=== PATIENT | male | born 2000 | race Caucasian/White ===

== ENCOUNTER 2019-08-13 17:13 | Emergency (ER) | payer OTHER ==
--- NOTE | 2019-08-13 17:32 | ED ---
Complex/Multi-Sys Presentation - HPI Summary HPI Summary: 18 year old M arriving via private car from [facility] complains of purple discoloration up his knees and toes and light headedness after inhaling poppers yesterday evening. Went to technical illustrator today who was concerned with discoloration and referred patient to ED to check hemoglobin. Symptoms rated 2/ 10 in severity. Symptoms improved since onest. No PMHx. No surgical hx. FHx diabetes, cardiac disease, depression, anxiety. - History Of Current Complaint Chief Complaint: EDGeneral Time Seen by Provider: 08/13/19 17:25 Hx Obtained From: Patient Onset/Duration: Lasting Hours, Still Present Timing: Constant Severity Currently: Mild Aggravating Factor(s): Nothing Alleviating Factor(s): Nothing - Allergies/Home Medications Allergies/Adverse Reactions: Allergies Allergy/AdvReac Type Severity Reaction Status Date / Time No Known Allergies Allergy Verified 08/13/19 17:21 Home Medications: Home Medications NK [No Home Medications Reported] 08/13/19 [History Confirmed 08/13/19] PMH/Surg Hx/FS Hx/Imm Hx Endocrine/Hematology History: Denies: Hx Diabetes Cardiovascular History: Denies: Hx Hypertension - Surgical History Surgical History: None Infectious Disease History: No Infectious Disease History: Denies: Traveled Outside the [place] in Last 30 Days - Family History Known Family History: Positive: Cardiac Disease, Diabetes, Other - depression, anxiety Review of Systems Positive: Other - purple discoloration up his knees and toes Neurological: Other - light headedness All Other Systems Reviewed And Are Negative: Yes Physical Exam - Summary Physical Exam Summary: Constitutional: Well-developed, Well-nourished, Alert. (-) Distressed Skin: Warm, Dry. Cyanosis of the nail beds HENT: Normocephalic; Atraumatic Eyes: Conjunctiva normal Neck: Musculoskeletal ROM normal neck. (-) JVD, (-) Stridor, (-) Nuchal rigidity Cardio: Rhythm regular, rate normal, Heart sounds normal; Intact distal pulses; Radial pulses are 2+ and symmetric. (-) Murmur Pulmonary/Chest wall: Effort normal. (-) Respiratory distress, (-) Wheezes, (-) Rales Abd: Soft, (-) tenderness, (-) Distension, (-) Guarding, (-) Rebound Musculoskeletal: (-) Edema Lymph: (-) Cervical adenopathy Neuro: Alert, Oriented x3 Psych: Mood and affect Normal Triage Information Reviewed: Yes Vital Signs On Initial Exam: Initial Vitals Temp Pulse Resp BP Pulse Ox 97.5 F 96 14 146/101 100 08/13/19 17:15 08/13/19 17:15 08/13/19 17:15 08/13/19 17:15 08/13/19 17:15 Vital Signs Reviewed: Yes Procedures - Sedation Patient Received Moderate/Deep Sedation with Procedure: No Diagnostics - Vital Signs Vital Signs Temp Pulse Resp BP Pulse Ox 08/13/19 17:15 97.5 F 96 14 146/101 100 - Laboratory Result Diagrams: 08/13/19 18:24 08/13/19 18:24 Lab Statement: Any lab studies that have been ordered have been reviewed, and results considered in the medical decision making process. - EKG No standard instances Cardiac Rate: Tachycardia EKG Rhythm: Sinus Tachycardia ST Segment: Normal - benign early repol Ectopy: None Complex Multi-Symp Course/Dx Course Of Treatment: 18 y/o now presents with peripheral cyanosis in the setting of drug use. Physical exam a well-appearing male, no acute distress. Mild peripheral cyanosis (nailbeds). Oxygen saturation 100%. Patient admits to inhaling poppers which often consist of nitrates, initial concern for methemoglobinemia. ABG with PaO2 104. Unable to send met hemoglobin level here however lower suspicion clinically significant hemoglobinemia given normal O2 sat and PO2. - Diagnoses Provider Diagnoses: Peripheral cyanosis Discharge ED - Sign-Out/Discharge Documenting (check all that apply): Patient Departure - Discharge Plan Condition: Stable Disposition: HOME Referrals: Laura Smith MD [Primary Care Provider] - Additional Instructions: You were seen in the ER for concern for low oxygen levels. Your hemoglobin and oxygen levels were stable. Please return for any worsening or concerning symptoms. It was a pleasure taking care of you today. - Billing Disposition and Condition Condition: STABLE Disposition: Home - Attestation Statements Document Initiated by Scribe: Yes Documenting Scribe: Bhavna Ceballos Provider For Whom Scribe is Documenting (Include Credential): Luis Alfredo Murillo MD Scribe Attestation: Bhavna Fonseca, scribed for Luis Alfredo Murillo MD on 08/14/19 at 0746. Scribe Documentation Reviewed: Yes Provider Attestation: The documentation as recorded by the scribe, Bhavna Ceballos accurately reflects the service I personally performed and the decisions made by me, Luis Alfredo Murillo MD Status of Scribe Document: Viewed
[2019-08-13 18:30] LABS: ABS Lymphocytes 1.9 10^3/ul (1.0-4.8); ABS Monocytes 0.8 10^3/ul (0-0.8); ABS Neutrophils 6.6 10^3/ul (1.5-7.7); Eosinophil % 0.1 %; Hematocrit 49 % (42-52); Hemoglobin 17.1 g/dL (14.0-18.0); Lymphocyte % 20.8 %; Mean Corpuscular HGB Conc 35 g/dL (31-36); Mean Corpuscular Hemoglobin 30 pg (27-31); Mean Corpuscular Volume 84 fL (80-94); Mean Platelet Volume 7.8 fL (7.4-10.4); Nucleated Red Blood Cells % 0.1; Platelet Count 246 10^3/uL (150-450); Red Blood Count 5.81 10^6 /uL (4.18-5.48); Red Cell Distribution Width 14 % (10-15); White Blood Count 9.3 10^3/uL (3.5-10.8)
[2019-08-13 19:01] LABS: Albumin 5.3 g/dL (3.2-5.2); Calcium 10.3 mg/dL (8.6-10.3); EGFR African American 115.3 (>60); EGFR Non-African American 95.3 (>60); Globulin 2.6 g/dL (2-4); Potassium 3.8 mmol/L (3.5-5.0); Total Bilirubin 1.3 mg/dL (0.2-1.0); Total Protein 7.9 g/dL (6.4-8.9)
[2019-08-13 19:24] VITALS: BP 115/70
== END 2019-08-13 19:23 | disposition home or self-care (01) ==
LOC: ED 17:13
DX: T59.91XA Toxic effect of unspecified gases, fumes and vapors, accidental (unintentional), initial encounter (principal); R23.0 Cyanosis; F18.10 Inhalant abuse, uncomplicated; R42 Dizziness and giddiness; Y92.9 Unspecified place or not applicable
CPT/HCPCS: 36415; 80053; 82803; 85025; 93005; 99282